=== PATIENT | female | born 1950 | race Caucasian/White ===

== ENCOUNTER 2016-10-30 12:25 | Emergency (ER) | payer OTHER ==
[~2016-10-30] VITALS: Ht 160 cm; Wt 127.0 kg
[2016-10-30] MEDS ORDERED: ZOCOR20 MG PO (12:33)
[2016-10-30] MEDS ORDERED: METFORMIN HCL500 MG PO (12:33)
[2016-10-30] MEDS ORDERED: NABUMETONE 750750 M1 PO (12:33)
[2016-10-30] MEDS ORDERED: OMEPRAZOLE40 MG PO (12:34)
[2016-10-30] MEDS ORDERED: BENAZEPRIL HCL40 MG PO (12:34)
[2016-10-30 14:05] VITALS: BP 155/79
== END 2016-10-30 14:06 | disposition home or self-care (01) ==
LOC: ER 12:25
DX: M25.511 Pain in right shoulder (principal); M25.561 Pain in right knee; M25.571 Pain in right ankle and joints of right foot; Z88.2 Allergy status to sulfonamides; Z88.5 Allergy status to narcotic agent